=== PATIENT | male | born 1990 | race Caucasian/White ===

== ENCOUNTER 2020-09-27 15:33 | Emergency (ER) | payer OTHER ==
[2020-09-27 15:57] LABS: BASOPHIL 0.1 % (0-2); EOSINOPHIL 0 % (0-5); HCT 36.8 % (42.0-52.0); HGB 13.6 g/dl (13.2-18.0); LYMPHOCYTE 8.9 % (15-48); MCH 37.5 pg (25.0-31.0); MCV 101.4 fL (78.0-100.0); MONOCYTE 6.9 % (0-12); MPV 9.7 fL (6.0-9.5); NEUTROPHIL 81.3 % (41-80); NRBC 0; PLT 427 K/uL (150-400); RBC 3.63 M/uL (4.70-6.00); RDW 12.3 % (11.5-14.0)
[2020-09-27 15:58] LABS: WBC 42.6 K/uL (4.0-10.5)
[2020-09-27 16:04] LABS: ALBUMIN 1.5 g/dL (3.4-5.0); BILIRUBIN - TOTAL 0.5 mg/dL (0.2-1.0); BUN/CREAT RATIO (CALC) 12.4 RATIO; CREATININE 2.02 mg/dL (0.67-1.17); GLOBULIN (CALCULATION) 4.1 g/dL; POTASSIUM 2.9 mmol/L (3.5-5.1); TOTAL PROTEIN 5.6 g/dL (6.4-8.2)
[2020-09-27 16:38] LABS: INR 1.36 (0.9-1.2); PROTHROMBIN TIME 16.1 SECONDS (11.8-13.4)
[2020-09-27 16:39] LABS: PTT 42.1 SECONDS (24.4-34.7)
[2020-09-27 16:47] LABS: BILIRUBIN 1+ mg/dL (NEGATIVE); BLOOD 2+ Ery/uL (NEGATIVE); CLARITY CLEAR (CLEAR); COLOR YELLOW (YELLOW); GLUCOSE (U) NORMAL (NORMAL); LEUKOCYTES NEGATIVE Leu/uL (NEGATIVE); NITRITE NEGATIVE (NEGATIVE); PROTEIN 2+ mg/dL (NEGATIVE); SPECIFIC GRAVITY >=1.030 (1.001-1.030); UROBILINOGEN 0.2 mg/dL (0.2-1.0)
[2020-09-27 16:55] LABS: BACTERIA 3+
[2020-09-27 16:56] LABS: SPERM PRESENT
[2020-09-27] MEDS ORDERED: NAPROXEN500 MG PO (17:06)
[2020-09-27 17:51] LABS: AMPHETAMINES POSITIVE (NEGATIVE); BARBITURATES NEGATIVE (NEGATIVE); ECSTASY (MDMA) NEGATIVE (NEGATIVE); MARIJUANA (THC) POSITIVE (NEGATIVE); METHADONE NEGATIVE (NEGATIVE); OPIATES NEGATIVE (NEGATIVE)
[2020-09-27 17:52] LABS: OXYCODONE NEGATIVE (NEGATIVE)
[2020-09-27 17:54] LABS: RBC (FLUID) 48000 RBC/uL; WBC (FLUID) 5224 WBC/uL
[2020-09-27 17:59] LABS: CLARITY (FLUID) CLOUDY; COLOR (FLUID) AMBER
== END 2020-09-27 17:43 | disposition home or self-care (01) ==
LOC: FER 15:33
PROVIDERS: Emergency Medicine
DX: I46.9 Cardiac arrest, cause unspecified (principal); I21.4 Non-ST elevation (NSTEMI) myocardial infarction; I47.1 Supraventricular tachycardia; I95.9 Hypotension, unspecified; J18.1 Lobar pneumonia, unspecified organism; J96.01 Acute respiratory failure with hypoxia; E87.1 Hypo-osmolality and hyponatremia; E87.6 Hypokalemia; D72.829 Elevated white blood cell count, unspecified; Z20.822 Contact with and (suspected) exposure to COVID-19
CPT/HCPCS: 31500; 36415; 36600; 70450; 71045; 71250; 80053; 80305; 81001; 82550; 82553; 82803; 83605; 84157; 85025; 85610; 85730; 89051; 93005; 96365; 96367; 96375; C1751; J0171; J1720; J2543; J3370; J3480; J7050; U0002